=== PATIENT | male | born 1940 | race Caucasian/White ===

== ENCOUNTER 2018-04-04 08:39 | Emergency (ER) | payer MEDICARE, OTHER ==
[~2018-04-04] VITALS: Ht 185.4 cm; Wt 78.5 kg
[2018-04-04] MEDS ORDERED: PROSCAR 5MG TABL5 MG PO (09:04)
[2018-04-04] MEDS ORDERED: SIMVASTATIN40 MG PO (09:04)
[2018-04-04] MEDS ORDERED: LOPRESSOR50 PO (09:04)
[2018-04-04 09:05] LABS: URINE BILIRUBIN NEGATIVE (Negative); URINE BLOOD NEGATIVE (Negative); URINE CLARITY CLEAR; URINE COLOR YELLOW; URINE GLUCOSE-RANDOM NEGATIVE (Negative); URINE KETONES TRACE (Negative); URINE LEUKOCYTES-REFLEX NEGATIVE (Negative); URINE NITRITE-REFLEX NEGATIVE (Negative); URINE PROTEIN NEGATIVE (Negative); URINE SPECIFIC GRAVITY 1.025 (1.005-1.030); URINE UROBILINOGEN 0.2 E.U./dl (0.2-1.0)
[2018-04-04 09:16] LABS: ABSOLUTE BASOPHILS 0.1 thou/uL (0.0-0.2); ABSOLUTE EOSINOPHILS 0.4 thou/uL (0.0-0.7); ABSOLUTE LYMPHOCYTES 2.8 thou/uL (0.8-5.3); ABSOLUTE MONOCYTES 0.8 thou/uL (0.0-1.2); ABSOLUTE NEUTROPHILS 6.2 thou/uL (1.6-8.1); BASOPHILS 0.6 %; EOSINOPHILS 3.7 %; HEMATOCRIT 46.5 % (42.0-52.0); HEMOGLOBIN 15.5 gm/dL (14.0-18.0); LYMPHOCYTES 27.4 %; MCH 31.5 pg (26.0-34.0); MCHC 33.3 g/dL (28.0-37.0); MCV 94.8 fL (80.0-100.0); MONOCYTES 7.7 %; MPV 8.7 fl. (7.2-11.1); NUCLEATED RBCS 0 /100WBC; PLATELET COUNT* 249 thou/uL (150-400); POLYS 60.6 %; RBC 4.91 mil/uL (4.50-6.00); RDW-CV 13.9 % (10.5-14.5); WBC 10.3 thou/uL (4.0-11.0)
[2018-04-04 09:23] LABS: ANION GAP 12 mmol/L (7-16); BUN 13 mg/dL (7-18); CHLORIDE 101 mmol/L (98-107); CO2 25 mmol/L (21-32); CREATININE 1.3 mg/dL (0.6-1.3); GLUCOSE 149 mg/dL (70-99); POTASSIUM 4.2 mmol/L (3.5-5.1); SODIUM 138 mmol/L (136-145)
[2018-04-04 09:30] LABS: ALKALINE PHOSPHATASE 94 U/L (46-116); SGOT 23 U/L (15-37); SGPT 24 U/L (30-65); TOTAL BILIRUBIN 0.8 mg/dL (<0.1-1.0); TOTAL PROTEIN 7.7 g/dL (6.4-8.2); TROPONIN-I LEVEL <0.06 ng/mL (<0.06)
[2018-04-04] MEDS ORDERED: ZPAK PO (11:47)
[2018-04-04 11:59] VITALS: BP 163/82
--- NOTE | 2018-04-04 15:00 | EKG ---
[place] [address] ELECTROCARDIOGRAM REPORT Name: SADIQGIANNI Luly Room: [facility]#: [id number] Admission: 04/04/18 Attend Phys: Discharge: 04/04/18 Date of : 44 Report #: [id number] THIS REPORT FOR: //name// [facility] ED Test Date: 2018-04-04 Test Time: 09:03:12 Pat Name: GIANNI BABCOCK Department: Room: Gender: M [employer] Supervisor: Bogdan BONILLA : 1940 Requested By: Jason Miranda Order Number: [id number] MD: Benjy Molina Measurements Intervals [place] Rate: 117 P: 84 NM: 144 QRS: -37 QRSD: 92 T: 109 QT: 314 QTc: 438 Interpretive Statements Sinus tachycardia Ventricular premature complex Left axis deviation Repol abnrm suggests ischemia, diffuse leads Baseline wander in lead(s) III,aVF No previous ECG available for comparison Electronically Signed On 04-04-2018 15:00:12 CDT by Benjy Molina [email or web address] <ELECTRONICALLY SIGNED> By: Benjy Molina MD, [facility] 04/04/18 1500 09 09 Benjy Molina MD, [facility] /EPI
== END 2018-04-04 12:02 | disposition left against medical advice (07) ==
LOC: M.ERS 08:39
PROVIDERS: Emergency Medicine Emergency Medical Services
DX: I71.4 Abdominal aortic aneurysm, without rupture (principal); E78.00 Pure hypercholesterolemia, unspecified; I10 Essential (primary) hypertension; F17.210 Nicotine dependence, cigarettes, uncomplicated